=== PATIENT | male | born 1995 | race American Indian/Alaskan Native ===

== ENCOUNTER 2016-12-26 05:04 | Emergency (ER) | payer BC, OTHER ==
[2016-12-26 05:14] VITALS: BP 149/130
[2016-12-26] MEDS ORDERED: Ondansetron 4 MG/2 ML SDV IV ONE (05:15)
[2016-12-26] MEDS ORDERED: Famotidine 20 MG/2 ML SDV IVPUSH ONE (05:16)
[2016-12-26] MEDS ORDERED: HYDROmorphone 1 MG/ML Syringe IVPUSH ONE (05:30)
--- NOTE | 2016-12-26 05:31 | EDM.PDOC ---
ED HPI GENERAL MEDICAL PROBLEM - General Chief Complaint: Gastrointestinal Problem Stated Complaint: SHARP PAINS IN BACK, ABD PAIN Time Seen by Provider: 12/26/16 05:15 Source of Information: Reports: Patient History Limitations: Reports: No Limitations - History of Present Illness INITIAL COMMENTS - FREE TEXT/NARRATIVE: c/o mid epigastric pain which radiates to back that woke him from sleep, vomited x 5. Ate pizza hamburger and fries for supper. Similar episodes in past after eating greasy food. Has not tried anything for pain. Epigastric Pain Score (Numeric/FACES): 9 - Related Data Allergies Allergy/AdvReac Type Severity Reaction Status Date / Time No Known Allergies Allergy Verified 02/27/14 23:47 Home Meds: Home Meds . [No Known Home Meds] 02/27/14 [History] Past Medical History - Past Health History Medical/Surgical History: Denies Medical/Surgical History Social & Family History - Tobacco Use Smoking Status *Q: Current Every Day Smoker Years of Tobacco use: 6 Packs/Tins Daily: 0.2 Used Tobacco, but Quit: No Second Hand Smoke Exposure: Yes - Caffeine Use Caffeine Use: Reports: Energy Drinks, Soda - Alcohol Use Days Per Week of Alcohol Use: 1 Number of Drinks Per Day: 4 Total Drinks Per Week: 4 - Recreational Drug Use Recreational Drug Use: No ED ROS GENERAL - Review of Systems Review Of Systems: ROS reveals no pertinent complaints other than HPI. ED EXAM, GI/ABD - Physical Exam Exam: See Below Exam Limited By: No Limitations General Appearance: Alert, Mild Distress Ears: Normal External Exam Nose: Normal Inspection Throat/Mouth: Normal Inspection, Normal Lips Head: Atraumatic, Normocephalic Neck: Normal Inspection Respiratory/Chest: No Respiratory Distress, Lungs Clear Cardiovascular: Normal Peripheral Pulses, Regular Rate, Rhythm GI/Abdominal Exam: Normal Bowel Sounds, Soft, Tender (epigastric , RUQ) Extremities: Normal Inspection, Normal Range of Motion Neurological: Alert, Oriented, Normal Cognition Psychiatric: Normal Affect, Anxious Skin Exam: Warm, Dry, Intact, Normal Color Course - Vital Signs Last Recorded V/S: Last Vital Signs Temp 97.0 F 12/26/16 05:12 Pulse 64 12/26/16 05:12 Resp 23 H 12/26/16 05:12 BP 149/130 H 12/26/16 05:12 Pulse Ox 100 12/26/16 05:12 - Orders/Labs/Meds Orders: Active Orders 24 hr Category Date Time Status Abdomen Pelvis w Cont [CT] Urgent Exams 12/26/16 06:22 Taken Labs: Laboratory Tests 12/26/16 12/26/16 Range/Units 05:15 05:15 WBC 10.5 H (5.0-10.0) 10^3/uL RBC 5.40 (4.6-6.2) 10^6/uL Hgb 16.3 (14.0-18.0) g/dL Hct 47.4 (40.0-54.0) % MCV 87.8 (80-100) fL MCH 30.2 (27.0-34.0) pg MCHC 34.4 (33.0-35.0) g/dL Plt Count 342 (150-450) 10^3/uL Neut % (Auto) 71.1 (42.2-75.2) % Lymph % (Auto) 20.2 L (20.5-50.1) % [place] % (Auto) 7.5 (2-8) % Eos % (Auto) 1.0 (1.0-3.0) % Baso % (Auto) 0.2 (0.0-1.0) % Sodium 140 (135-145) mmol/L Potassium 3.7 (3.6-5.0) mmol/L Chloride 105 (101-111) mmol/L Carbon Dioxide 24.0 (21.0-31.0) mmol/L Anion Gap 14.7 BUN 12 (7-18) mg/dL Creatinine 1.0 (0.6-1.3) mg/dL Est Cr Clr Drug Dosing 115.87 mL/min Estimated GFR (MDRD) > 60 BUN/Creatinine Ratio 12.00 Glucose 147 H (74-105) mg/dL Calcium 9.4 (8.4-10.2) mg/dl Total Bilirubin 0.6 (0.2-1.0) mg/dL AST 167 H (10-42) IU/L ALT 272 H (10-60) IU/L Alkaline Phosphatase 83 (42-121) IU/L Total Protein 8.0 (6.7-8.2) g/dl Albumin 4.2 (3.2-5.5) g/dl Globulin 3.8 Albumin/Globulin Ratio 1.11 Amylase 64 (28-100) U/L Lipase 29 (22-51) U/L Meds: Medications Discontinued Medications Generic Name Dose Route Start Last Admin Trade Name Fabricio PRN Reason Stop Dose Admin Famotidine 20 mg 12/26/16 05:16 12/26/16 05:23 Pepcid IVPUSH 12/26/16 05:17 20 mg ONETIME ONE Administration Hydromorphone HCl 1 mg 12/26/16 05:30 12/26/16 05:34 Dilaudid IVPUSH 12/26/16 05:31 1 mg ONETIME ONE Administration Iopamidol 100 ml 12/26/16 06:14 Isovue-300 (61%) IVPUSH 12/26/16 06:15 ONETIME ONE Ondansetron HCl 4 mg 12/26/16 05:15 12/26/16 05:22 Zofran IV 12/26/16 05:16 4 mg ONETIME ONE Administration - Radiology Interpretation Free Text/Narrative:: mildly dilated gall bladder no gall stones Departure - Departure Time of Disposition: 06:59 Disposition: Home, Self-Care 01 Condition: Good Clinical Impression: Abdominal pain Qualifiers: Abdominal location: right upper quadrant Qualified Code(s): R10.11 - Right upper quadrant pain - Discharge Information Instructions: Nausea and Vomiting, Adult, [id number] Forms: ED Department Discharge Additional Instructions: light low fat diet follow up in clinic. Gall Bladder ultrasound recommende tylenol or ibuprofen for discomfortZofran 4mg ODT one every 6 hours as needed #4 - My Orders Last 24 Hours: My Active Orders 12/26/16 06:22 Abdomen Pelvis w Cont [CT] Urgent - Assessment/Plan Last 24 Hours: My Active Orders 12/26/16 06:22 Abdomen Pelvis w Cont [CT] Urgent
[2016-12-26 05:42] LABS: CHLORIDE,CL 105 mmol/L (101-111); SODIUM,NA 140 mmol/L (135-145)
[2016-12-26] MEDS ORDERED: Iopamidol 612 MG/ML 100 ML Bottle IVPUSH ONE (06:14)
== END 2016-12-26 07:09 | disposition home or self-care (01) ==
LOC: DL.ED 05:04
DX: R10.11 Right upper quadrant pain (principal); F17.210 Nicotine dependence, cigarettes, uncomplicated
CPT/HCPCS: 36415; 74177; 80053; 82150; 83690; 85025; 96374; 96375; 99284; J1170; J2405; Q9967; S0028

== ENCOUNTER 2017-08-23 18:17 | Emergency (ER) | payer BC, OTHER ==
[2017-08-23 18:29] VITALS: BP 154/86
[2017-08-23 19:06] LABS: CHLORIDE,CL 105 mmol/L (101-111); SODIUM,NA 141 mmol/L (135-145)
--- NOTE | 2017-08-23 19:11 | EDM.PDOC ---
ED HPI GENERAL MEDICAL PROBLEM - General Chief Complaint: Abdominal Pain Stated Complaint: [id number] GALBLADDER Time Seen by Provider: 08/23/17 19:04 Source of Information: Reports: Patient History Limitations: Reports: No Limitations - History of Present Illness INITIAL COMMENTS - FREE TEXT/NARRATIVE: recurrent abd' pain @ 2pm ate Missy earlier gives h/o GB but missed appt in March and never called back. been ok till today. states has been scheduled for surgery here when surgeon arrives. Abdomen Pain Score (Numeric/FACES): 7 - Related Data Allergies Allergy/AdvReac Type Severity Reaction Status Date / Time No Known Allergies Allergy Verified 08/23/17 18:29 Home Meds: Home Meds . [No Known Home Meds] 02/27/14 [History] Past Medical History - Past Health History Medical/Surgical History: Denies Medical/Surgical History HEENT History: Reports: Impaired Vision Other HEENT History: wears glasses Cardiovascular History: Reports: None Respiratory History: Reports: None Gastrointestinal History: Reports: Cholelithiasis Genitourinary History: Reports: None Musculoskeletal History: Reports: None Neurological History: Reports: None Psychiatric History: Reports: None Endocrine/Metabolic History: Reports: None Hematologic History: Reports: None Immunologic History: Reports: None Oncologic (Cancer) History: Reports: None Dermatologic History: Reports: None - Infectious Disease History Infectious Disease History: Reports: None - Past Surgical History Head Surgeries/Procedures: Reports: None Social & Family History - Tobacco Use Smoking Status *Q: Current Every Day Smoker Years of Tobacco use: 3 Packs/Tins Daily: 0.5 Second Hand Smoke Exposure: No - Caffeine Use Caffeine Use: Reports: None - Recreational Drug Use Recreational Drug Use: No ED ROS GENERAL - Review of Systems Review Of Systems: ROS reveals no pertinent complaints other than HPI. ED EXAM, GI/ABD - Physical Exam Exam: See Below Exam Limited By: No Limitations General Appearance: Alert, WD/WN, Mild Distress, Other (pain) Ears: Hearing Grossly Normal Throat/Mouth: Normal Voice, No Airway Compromise Head: Atraumatic Neck: Non-Tender, Full Range of Motion Respiratory/Chest: No Respiratory Distress Cardiovascular: Regular Rate, Rhythm GI/Abdominal Exam: Tender, Other (epiG). No: Distended, Guarding, Rigid, Rebound Neurological: Alert, Oriented, Normal Cognition, Normal Gait, No Motor/Sensory Deficits Psychiatric: Tearful Skin Exam: Warm, Dry, Normal Color Lymphatic: No Adenopathy Course - Vital Signs Last Recorded V/S: Last Vital Signs Temp 36.4 C 08/23/17 18:22 Pulse 101 H 08/23/17 18:22 Resp 16 08/23/17 18:22 BP 154/86 H 08/23/17 18:22 Pulse Ox 100 08/23/17 18:22 - Orders/Labs/Meds Orders: Active Orders 24 hr Category Date Time Status DRUG SCREEN URINE BIORAD [URCHEM] Stat Lab 08/23/17 18:35 Ordered UA W/MICROSCOPIC [URIN] Stat Lab 08/23/17 18:35 Ordered Labs: Laboratory Tests 08/23/17 08/23/17 Range/Units 18:40 18:40 WBC 8.9 (5.0-10.0) 10^3/uL RBC 5.43 (4.6-6.2) 10^6/uL Hgb 16.7 (14.0-18.0) g/dL Hct 49.2 (40.0-54.0) % MCV 90.6 (80-100) fL MCH 30.8 (27.0-34.0) pg MCHC 33.9 (33.0-35.0) g/dL Plt Count 355 (150-450) 10^3/uL Neut % (Auto) 63.5 (42.2-75.2) % Lymph % (Auto) 24.6 (20.5-50.1) % [place] % (Auto) 10.4 H (2-8) % Eos % (Auto) 1.3 (1.0-3.0) % Baso % (Auto) 0.2 (0.0-1.0) % Sodium 141 (135-145) mmol/L Potassium 4.4 (3.6-5.0) mmol/L Chloride 105 (101-111) mmol/L Carbon Dioxide 29.0 (21.0-31.0) mmol/L Anion Gap 11.4 BUN 8 (7-18) mg/dL Creatinine 1.1 (0.6-1.3) mg/dL Est Cr Clr Drug Dosing 107.84 mL/min Estimated GFR (MDRD) > 60 BUN/Creatinine Ratio 7.27 Glucose 105 (74-105) mg/dL Calcium 9.6 (8.4-10.2) mg/dl Total Bilirubin 0.8 (0.2-1.0) mg/dL AST 113 H (10-42) IU/L ALT 201 H (10-60) IU/L Alkaline Phosphatase 86 (42-121) IU/L Total Protein 7.8 (6.7-8.2) g/dl Albumin 4.0 (3.2-5.5) g/dl Globulin 3.8 Albumin/Globulin Ratio 1.05 Amylase 52 (28-100) U/L Lipase 36 (22-51) U/L Ethyl Alcohol < 5 mg/dL Meds: Medications Discontinued Medications Generic Name Dose Route Start Last Admin Trade Name Freq PRN Reason Stop Dose Admin Ketorolac Tromethamine 30 mg 08/23/17 19:03 Toradol IM 08/23/17 19:04 ONETIME ONE Ondansetron HCl 4 mg 08/23/17 19:03 Zofran Odt PO 08/23/17 19:04 ONETIME ONE - Re-Assessments/Exams Free Text/Narrative Re-Assessment/Exam: 08/23/17 19:19 results discussed with pt. Departure - Departure Time of Disposition: 19:20 Disposition: Home, Self-Care 01 Condition: Good Clinical Impression: Abdominal pain Qualifiers: Abdominal location: epigastric Qualified Code(s): R10.13 - Epigastric pain Cholelithiases Qualifiers: Cholelithiasis location: gallbladder Cholecystitis presence: without cholecystitis Biliary obstruction: without biliary obstruction Qualified Code(s) : K80.20 - Calculus of gallbladder without cholecystitis without obstruction - Discharge Information Instructions: Gallbladder Eating Plan Referrals: PCP,None [Primary Care Provider] - Forms: ED Department Discharge Additional Instructions: 1) avoid fatty fried oily spicy foods next 2 week 2) follow up at clinic 3) recheck as needed rx given; bentyl 10mg bid prn x 12
[2017-08-23] MEDS: Ondansetron 4 MG Tab.DIS PO ONE (19:20)
[2017-08-23] MEDS: Ketorolac 30 MG/ML SDV IM ONE (19:21)
== END 2017-08-23 19:27 | disposition home or self-care (01) ==
LOC: DL.ED 18:17
DX: K80.20 Calculus of gallbladder without cholecystitis without obstruction (principal); F17.210 Nicotine dependence, cigarettes, uncomplicated
CPT/HCPCS: 36415; 80053; 82150; 83690; 85025; 96372; 99284; A9270; G0480; J1885

== ENCOUNTER 2020-01-08 11:37 | Emergency (ER) | payer SELFPAY ==
--- NOTE | 2020-01-08 11:35 | EDM.PDOC ---
ED HPI GENERAL MEDICAL PROBLEM - General Chief Complaint: Abdominal Pain Stated Complaint: unknown Time Seen by Provider: 01/08/20 12:37 Source of Information: Reports: Patient, EMS, EMS Notes Reviewed, Old Records, RN, RN Notes Reviewed History Limitations: Reports: No Limitations - History of Present Illness INITIAL COMMENTS - FREE TEXT/NARRATIVE: Patient presents to the ED via EMS from [facility] with complaints of LUQ pain. Per the patient this pain began about 4-5 days ago and radiates across his upper abdomen, into his back. He does attest to a history of chol elithiasis with recommended surgical intervention in 2018, which he never received. He states he has been nauseas for the past 4-5 days, as well; he states he has vomited 6 times. He denies diarrhea, shaking chills, dysuria, hematuria, or constipation. He states his last BM was this morning 01/08/20. He does attest to drinking a six-pack of beer every other day. He denies recreational drug use. Left Upper Abdomen Pain Score (Numeric/FACES): 7 - Related Data Allergies Allergy/AdvReac Type Severity Reaction Status Date / Time No Known Allergies Allergy Verified 08/23/17 18:29 Home Meds: Home Meds . [No Known Home Meds] 02/27/14 [History] Past Medical History - Past Health History Medical/Surgical History: Denies Medical/Surgical History HEENT History: Reports: Impaired Vision Other HEENT History: wears glasses Cardiovascular History: Reports: None Respiratory History: Reports: None Gastrointestinal History: Reports: Cholelithiasis Genitourinary History: Reports: None Musculoskeletal History: Reports: None Neurological History: Reports: None Psychiatric History: Reports: None Endocrine/Metabolic History: Reports: None Hematologic History: Reports: None Immunologic History: Reports: None Oncologic (Cancer) History: Reports: None Dermatologic History: Reports: None - Infectious Disease History Infectious Disease History: Reports: None - Past Surgical History Head Surgeries/Procedures: Reports: None Social & Family History - Caffeine Use Caffeine Use: Reports: None ED ROS GENERAL - Review of Systems Review Of Systems: Comprehensive ROS is negative, except as noted in HPI. ED EXAM, GI/ABD - Physical Exam Exam: See Below Exam Limited By: No Limitations General Appearance: Alert, WD/WN, No Apparent Distress Eyes: Bilateral: Normal Appearance (Scleral jaundice), EOMI Throat/Mouth: Normal Voice, No Airway Compromise Respiratory/Chest: No Respiratory Distress, Lungs Clear, Normal Breath Sounds, No Accessory Muscle Use, Chest Non-Tender Cardiovascular: Normal Peripheral Pulses, Regular Rate, Rhythm, No Edema, No Gallop, No Murmur, No Rub GI/Abdominal Exam: Soft, No Distention, No Mass, Tender (Diffuse upper abdominal pain), Abnormal Bowel Sounds (Hypoactive), Hepatomegaly. No: Guarding, Rigid (Male) Exam: Deferred Rectal (Males) Exam: Deferred Back Exam: Normal Inspection, Full Range of Motion. No: CVA Tenderness (L), CVA Tenderness (R), Muscle Spasm, Paraspinal Tenderness, Vertebral Tenderness Extremities: Normal Inspection, Normal Range of Motion, Non-Tender, No Pedal Edema, Normal Capillary Refill. No: Pallor Neurological: Alert, Oriented, CN II-XII Intact Skin Exam: Warm, Dry, Jaundice Course - Vital Signs Last Recorded V/S: Last Vital Signs Temp 100 F 01/08/20 11:55 Pulse 119 H 01/08/20 11:55 Resp 14 01/08/20 11:55 BP 122/75 01/08/20 11:55 Pulse Ox 97 01/08/20 11:55 - Orders/Labs/Meds Orders: Active Orders 24 hr Category Date Time Status Peripheral IV Care [RC] . DIRECTED Care 01/08/20 11:26 Active CULTURE BLOOD [BC] Stat Lab 01/08/20 11:40 Received CULTURE BLOOD [BC] Stat Lab 01/08/20 11:45 Received Sodium Chloride 0.9% [Saline Flush] Med 01/08/20 11:26 Active 10 ml FLUSH ASDIRECTED PRN Blood Culture x2 Reflex Set [OM.PC] Stat Oth 01/08/20 11:26 Ordered Peripheral IV Insertion Adult [OM.PC] Stat Oth 01/08/20 11:26 Ordered Medication Orders Sodium Chloride (Saline Flush) 10 ml FLUSH ASDIRECTED PRN PRN Reason: Keep Vein Open Last Admin: 01/08/20 11:54 Dose: 10 ml Documented by: YUAN Labs: Laboratory Tests 01/08/20 01/08/20 01/08/20 Range/Units 11:33 11:45 11:45 WBC 25.0 H (5.0-10.0) 10^3/uL RBC 3.64 L (4.6-6.2) 10^6/uL Hgb 11.4 L D (14.0-18.0) g/dL Hct 33.5 L (40.0-54.0) % MCV 92.0 (80-100) fL MCH 31.3 (27.0-34.0) pg MCHC 34.0 (33.0-35.0) g/dL Plt Count 353 (150-450) 10^3/uL Neut % (Auto) 85.8 H (42.2-75.2) % Lymph % (Auto) 7.2 L (20.5-50.1) % [place] % (Auto) 6.8 (2-8) % Eos % (Auto) 0.1 L (1.0-3.0) % Baso % (Auto) 0.1 (0.0-1.0) % Add Manual Diff Yes Neutrophils % (Manual) 83 H (42-75) % Band Neutrophils % 8 % Lymphocytes % (Manual) 5 L (20-50) % Monocytes % (Manual) 4 (2-8) % Sodium 132 L (136-145) mmol/L Potassium 3.2 L (3.5-5.1) mmol/L Chloride 98 (98-107) mmol/L Carbon Dioxide 23 (21-32) mmol/L Anion Gap 14.2 H (7-13) mEq/L BUN 16 (7-18) mg/dL Creatinine 1.24 (0.70-1.30) mg/dL Est Cr Clr Drug Dosing TNP Estimated GFR (MDRD) > 60 BUN/Creatinine Ratio 12.9 (No establ ref range) Glucose 156 H (74-99) mg/dL Lactic Acid (0.4-2.0) mmol/L Calcium 7.8 L (8.5-10.1) mg/dL Total Bilirubin 6.1 H (0.2-1.0) mg/dL AST 222 H (15-37) U/L ALT 61 (16-63) U/L Alkaline Phosphatase 346 H (46-116) U/L Total Protein 7.9 (6.4-8.2) g/dL Albumin 1.5 L (3.4-5.0) g/dL Globulin 6.4 Albumin/Globulin Ratio 0.23 Amylase (25-115) U/L Lipase (73-393) U/L Urine Color (YELLOW) Urine Appearance (CLEAR) Urine pH (5.0-9.0) Ur Specific [place] (1.005-1.030) Urine Protein (NEGATIVE) Urine Glucose (UA) (NEGATIVE) Urine Ketones (NEGATIVE) Urine Occult Blood (NEGATIVE) Urine Nitrite (NEGATIVE) Urine Bilirubin (NEGATIVE) Urine Urobilinogen (0.2-1.0) mg/dL Ur Leukocyte Esterase (NEGATIVE) Urine RBC /HPF Urine WBC (0-5/HPF) /HPF Ur Epithelial Cells (NOT SEEN) /HPF Urine Bacteria (0-FEW/HPF) /HPF Urine Mucus (NOT SEEN) /LPF Urine Opiates Screen (NEGATIVE) Ur Oxycodone Screen (NEGATIVE) Urine Methadone Screen (NEGATIVE) Ur Barbiturates Screen (NEGATIVE) U Tricyclic Antidepress (NEGATIVE) Ur Phencyclidine Scrn (NEGATIVE) Ur Amphetamine Screen (NEGATIVE) U Methamphetamines Scrn (NEGATIVE) Urine MDMA Screen (NEGATIVE) U Benzodiazepines Scrn (NEGATIVE) Urine Cocaine Screen (NEGATIVE) U Marijuana (THC) Screen (NEGATIVE) SARS CoV-2 RNA Rapid EDDA Negative (NEGATIVE) 01/08/20 01/08/20 01/08/20 Range/Units 11:45 11:45 14:00 WBC (5.0-10.0) 10^3/uL RBC (4.6-6.2) 10^6/uL Hgb (14.0-18.0) g/dL Hct (40.0-54.0) % MCV (80-100) fL MCH (27.0-34.0) pg MCHC (33.0-35.0) g/dL Plt Count (150-450) 10^3/uL Neut % (Auto) (42.2-75.2) % Lymph % (Auto) (20.5-50.1) % [place] % (Auto) (2-8) % Eos % (Auto) (1.0-3.0) % Baso % (Auto) (0.0-1.0) % Add Manual Diff Neutrophils % (Manual) (42-75) % Band Neutrophils % % Lymphocytes % (Manual) (20-50) % Monocytes % (Manual) (2-8) % Sodium (136-145) mmol/L Potassium (3.5-5.1) mmol/L Chloride (98-107) mmol/L Carbon Dioxide (21-32) mmol/L Anion Gap (7-13) mEq/L BUN (7-18) mg/dL Creatinine (0.70-1.30) mg/dL Est Cr Clr Drug Dosing Estimated GFR (MDRD) BUN/Creatinine Ratio (No establ ref range) Glucose (74-99) mg/dL Lactic Acid 2.5 H* (0.4-2.0) mmol/L Calcium (8.5-10.1) mg/dL Total Bilirubin (0.2-1.0) mg/dL AST (15-37) U/L ALT (16-63) U/L Alkaline Phosphatase (46-116) U/L Total Protein (6.4-8.2) g/dL Albumin (3.4-5.0) g/dL Globulin Albumin/Globulin Ratio Amylase 35 (25-115) U/L Lipase 150 (73-393) U/L Urine Color Nupur (YELLOW) Urine Appearance Slightly cloudy (CLEAR) Urine pH 5.5 (5.0-9.0) Ur Specific [place] 1.020 (1.005-1.030) Urine Protein 30 H (NEGATIVE) Urine Glucose (UA) Negative (NEGATIVE) Urine Ketones Negative (NEGATIVE) Urine Occult Blood Negative (NEGATIVE) Urine Nitrite Negative (NEGATIVE) Urine Bilirubin Large H (NEGATIVE) Urine Urobilinogen 4.0 H (0.2-1.0) mg/dL Ur Leukocyte Esterase Negative (NEGATIVE) Urine RBC 0-5 /HPF Urine WBC 0-5 (0-5/HPF) /HPF Ur Epithelial Cells Rare (NOT SEEN) /HPF Urine Bacteria Rare (0-FEW/HPF) /HPF Urine Mucus Rare (NOT SEEN) /LPF Urine Opiates Screen (NEGATIVE) Ur Oxycodone Screen (NEGATIVE) Urine Methadone Screen (NEGATIVE) Ur Barbiturates Screen (NEGATIVE) U Tricyclic Antidepress (NEGATIVE) Ur Phencyclidine Scrn (NEGATIVE) Ur Amphetamine Screen (NEGATIVE) U Methamphetamines Scrn (NEGATIVE) Urine MDMA Screen (NEGATIVE) U Benzodiazepines Scrn (NEGATIVE) Urine Cocaine Screen (NEGATIVE) U Marijuana (THC) Screen (NEGATIVE) SARS CoV-2 RNA Rapid EDDA (NEGATIVE) 10/15/20 Range/Units 14:00 WBC (5.0-10.0) 10^3/uL RBC (4.6-6.2) 10^6/uL Hgb (14.0-18.0) g/dL Hct (40.0-54.0) % MCV (80-100) fL MCH (27.0-34.0) pg MCHC (33.0-35.0) g/dL Plt Count (150-450) 10^3/uL Neut % (Auto) (42.2-75.2) % Lymph % (Auto) (20.5-50.1) % [place] % (Auto) (2-8) % Eos % (Auto) (1.0-3.0) % Baso % (Auto) (0.0-1.0) % Add Manual Diff Neutrophils % (Manual) (42-75) % Band Neutrophils % % Lymphocytes % (Manual) (20-50) % Monocytes % (Manual) (2-8) % Sodium (136-145) mmol/L Potassium (3.5-5.1) mmol/L Chloride (98-107) mmol/L Carbon Dioxide (21-32) mmol/L Anion Gap (7-13) mEq/L BUN (7-18) mg/dL Creatinine (0.70-1.30) mg/dL Est Cr Clr Drug Dosing Estimated GFR (MDRD) BUN/Creatinine Ratio (No establ ref range) Glucose (74-99) mg/dL Lactic Acid (0.4-2.0) mmol/L Calcium (8.5-10.1) mg/dL Total Bilirubin (0.2-1.0) mg/dL AST (15-37) U/L ALT (16-63) U/L Alkaline Phosphatase (46-116) U/L Total Protein (6.4-8.2) g/dL Albumin (3.4-5.0) g/dL Globulin Albumin/Globulin Ratio Amylase (25-115) U/L Lipase (73-393) U/L Urine Color (YELLOW) Urine Appearance (CLEAR) Urine pH (5.0-9.0) Ur Specific [place] (1.005-1.030) Urine Protein (NEGATIVE) Urine Glucose (UA) (NEGATIVE) Urine Ketones (NEGATIVE) Urine Occult Blood (NEGATIVE) Urine Nitrite (NEGATIVE) Urine Bilirubin (NEGATIVE) Urine Urobilinogen (0.2-1.0) mg/dL Ur Leukocyte Esterase (NEGATIVE) Urine RBC /HPF Urine WBC (0-5/HPF) /HPF Ur Epithelial Cells (NOT SEEN) /HPF Urine Bacteria (0-FEW/HPF) /HPF Urine Mucus (NOT SEEN) /LPF Urine Opiates Screen Negative (NEGATIVE) Ur Oxycodone Screen Negative (NEGATIVE) Urine Methadone Screen Negative (NEGATIVE) Ur Barbiturates Screen Negative (NEGATIVE) U Tricyclic Antidepress Negative (NEGATIVE) Ur Phencyclidine Scrn Negative (NEGATIVE) Ur Amphetamine Screen Negative (NEGATIVE) U Methamphetamines Scrn Negative (NEGATIVE) Urine MDMA Screen Negative (NEGATIVE) U Benzodiazepines Scrn Negative (NEGATIVE) Urine Cocaine Screen Negative (NEGATIVE) U Marijuana (THC) Screen Negative (NEGATIVE) SARS CoV-2 RNA Rapid EDDA (NEGATIVE) Meds: Medications Generic Name Dose Route Start Last Admin Trade Name Freq PRN Reason Stop Dose Admin Sodium Chloride 10 ml 01/08/20 11:26 01/08/20 11:54 Saline Flush FLUSH 10 ml ASDIRECTED PRN Administration Keep Vein Open Discontinued Medications Generic Name Dose Route Start Last Admin Trade Name Freq PRN Reason Stop Dose Admin Hydromorphone HCl 1 mg 01/08/20 12:43 01/08/20 12:50 Dilaudid IVPUSH 01/08/20 12:44 1 mg ONETIME ONE Administration Sodium Chloride 1,000 mls @ 999 mls/hr 01/08/20 12:25 01/08/20 12:38 Normal Saline IV 01/08/20 13:25 999 mls/hr .BOLUS ONE Administration Piperacillin Sod/Tazobactam 100 mls @ 200 mls/hr 01/08/20 14:36 01/08/20 15:05 Sod 3.375 gm/ Sodium Chloride IV 01/08/20 15:05 200 mls/hr ONETIME ONE Administration Vancomycin HCl 2 gm/ Sodium 500 mls @ 250 mls/hr 01/08/20 14:37 01/08/20 15:50 Chloride IV 01/08/20 16:36 250 mls/hr ONETIME ONE Administration Iopamidol 100 ml 01/08/20 12:24 01/08/20 13:03 Isovue-300 (61%) IVPUSH 01/08/20 12:25 100 ml ONETIME ONE Administration Lorazepam 1 mg 01/08/20 11:36 01/08/20 11:55 Ativan IVPUSH 01/08/20 11:37 1 mg ONETIME ONE Administration Ondansetron HCl 4 mg 01/08/20 11:35 01/08/20 11:55 Zofran IVPUSH 01/08/20 11:36 4 mg ONETIME ONE Administration - Re-Assessments/Exams Free Text/Narrative Re-Assessment/Exam: 01/08/20 12:45 CBC, CMP, Lactic, UA, Tox, Amylase/Lipase 01/08/20 13:00 NS 1L bolus x1; Zofran 4mg; Dilaudid 2mg 01/08/20 13:[address] abd/pelvis 01/08/20 13:44 Dr. Dorsey to come evaluate patient for surgery. 01/08/20 14:18 Patient to transfer to [facility] under Dr. Barrios for cholelithiasis and sepsis. [facility] and [place] not accepting transfers at this time. Will start Vanco and Zosyn while awaiting ground transport. 01/08/20 16:30 Continued waiting for ALS transport to [place]. Departure - Departure Time of Disposition: 17:21 Disposition: DC/Tfer to Acute Hospital 02 Condition: Good Clinical Impression: Cholelithiasis and acute cholecystitis without obstruction Sepsis Qualifiers: Sepsis type: sepsis due to unspecified organism Sepsis acute organ dysfunction status: unspecified Qualified Code(s): A41.9 - Sepsis, unspecified organism - Discharge Information *PRESCRIPTION DRUG MONITORING PROGRAM REVIEWED*: Not Applicable *COPY OF PRESCRIPTION DRUG MONITORING REPORT IN PATIENT MASHA: Not Applicable Forms: ED Department Discharge, Interfacility Transfer [facility] Sepsis Event Note (ED) - Focused Exam Vital Signs: Vital Signs Temp Pulse Resp BP Pulse Ox 01/08/20 11:55 100 F 119 H 14 122/75 97 - My Orders Last 24 Hours: My Active Orders 01/08/20 11:26 Peripheral IV Care [RC] . DIRECTED Sodium Chloride 0.9% [Saline Flush] 10 ml FLUSH ASDIRECTED PRN Blood Culture x2 Reflex Set [OM.PC] Stat Peripheral IV Insertion Adult [OM.PC] Stat 01/08/20 11:40 CULTURE BLOOD [BC] Stat 01/08/20 11:45 CULTURE BLOOD [BC] Stat - Assessment/Plan Last 24 Hours: My Active Orders 01/08/20 11:26 Peripheral IV Care [RC] . DIRECTED Sodium Chloride 0.9% [Saline Flush] 10 ml FLUSH ASDIRECTED PRN Blood Culture x2 Reflex Set [OM.PC] Stat Peripheral IV Insertion Adult [OM.PC] Stat 01/08/20 11:40 CULTURE BLOOD [BC] Stat 01/08/20 11:45 CULTURE BLOOD [BC] Stat
[~2020-01-08 11:37] MED LIST: LORazepam 2 MG/ML SDV IVPUSH ONE; Ondansetron 4 MG/2 ML SDV IVPUSH ONE; Sodium Chloride 0.9% 10 ML Syringe FLUSH PRN
[2020-01-08 11:56] VITALS: BP 122/75; PULSE 119
[2020-01-08 12:18] LABS: ANION GAP 14.2 mEq/L (7-13); CHLORIDE,CL 98 mmol/L (98-107); SODIUM,NA 132 mmol/L (136-145)
[2020-01-08] MEDS ORDERED: Iopamidol 612 MG/ML 100 ML Bottle IVPUSH ONE (12:24)
[2020-01-08] MEDS ORDERED: Sodium Chloride 0.9% 1,000 ML IV ONE (12:25)
[2020-01-08] MEDS ORDERED: HYDROmorphone 1 MG/ML Syringe IVPUSH ONE (12:43)
--- NOTE | 2020-01-08 13:31 | CT ---
EXAMINATION: Abdomen Pelvis w Cont SEX: Male AGE: 24 years CLINICAL HISTORY: 24-year-old 280 pound jaundiced male, with history "cholelithiasis". Now LUQ PAIN with abnormal elevated WBC 25,000. Scan technique: Abdomen and pelvis obtained without oral contrast but during the intravenous ministration 100 cc nonionic Isovue contrast at 3 cc/s via injector while patient was lying supine on the Siemens multislice scanner [place], [place]. All data archived in the PACS system for storage, reformatting axial/sagittal/coronal planes and study. Interpretation: 1. Enlarged liver extending across midline into the LUQ. Mild fatty involvement liver which is homogeneously dense liver. Mild splenomegaly. No sign of intrahepatic mass or infarct. No ascites. 2. Cholelithiasis. No pericystic fluid or abnormal dilatation of the intra/extrahepatic biliary ducts. 3., Adrenal glands and kidneys. No sign of renal cortical mass lesion, nephrolithiasis or obstructive uropathy. Unenhanced urinary bladder unremarkable. Normal retrocecal appendix. 4. No abdominal or pelvic mass lesion, inflammatory "dirty" peritoneal fat, signs of mechanical bowel obstruction, ascites or free intraperitoneal air. Scattered diverticula descending left colon (diverticulosis). 5. Normal caliber aortoiliac vessels. Lumbar spine unremarkable. No ventral wall hernias. 6. Lung bases clear. No pericardial or pleural effusions. CONCLUSION: Hepatosplenomegaly. Diseased gallbladder. Diverticulosis colon.
[2020-01-08] MEDS ORDERED: Piperacillin/Tazobactam 3.375 GM in Sodium Chloride 0.9% 100 ML IV ONE (14:36)
[2020-01-08] MEDS ORDERED: Vancomycin 2 GM in Sodium Chloride 0.9% 500 ML IV ONE (14:37)
== END 2020-01-08 17:22 ==
LOC: DL.ED 11:37
DX: A41.9 Sepsis, unspecified organism (principal); K80.00 Calculus of gallbladder with acute cholecystitis without obstruction; Z20.828 Contact with and (suspected) exposure to other viral communicable diseases
CPT/HCPCS: 36415; 74177; 80053; 80305; 81001; 82150; 83605; 83690; 85025; 87040; 87635; 96365; 96367; 96375; 99285; J1170; J2060; J2405; J2543; J3370; J7030; J7040; J7050; Q9967; U0002

== ENCOUNTER 2020-01-21 14:21 | Emergency (ER) | payer SELFPAY ==
[2020-01-21 14:32] VITALS: BP 124/73; PULSE 121
[2020-01-21 15:21] LABS: ANION GAP 15.7 mEq/L (7-13); CHLORIDE,CL 100 mmol/L (98-107); SODIUM,NA 135 mmol/L (136-145)
[2020-01-21] MEDS ORDERED: Sodium Chloride 0.9% 1,000 ML IV ONE (15:53)
[2020-01-21] MEDS ORDERED: Piperacillin/Tazobactam 3.375 GM in Sodium Chloride 0.9% 100 ML IV ONE (15:54)
--- NOTE | 2020-01-21 17:04 | EDM.PDOC ---
ED HPI GENERAL MEDICAL PROBLEM - General Chief Complaint: Abdominal Pain Time Seen by Provider: 01/21/20 14:30 Source of Information: Reports: Patient, EMS, EMS Notes Reviewed, RN, RN Notes Reviewed History Limitations: Reports: No Limitations - History of Present Illness INITIAL COMMENTS - FREE TEXT/NARRATIVE: Patient to ER per [facility] with complaint of abdominal pain across the upper quadrants, rates pain 8/10. Patient was seen in the [facility] today for complaint of extreme left upper quadrant pain. On January 07 patient was sent to the ER from [facility] and was then transferred to [facility] for cholecystitis, alcoholic hepatitis, gastritis. Patient is a known drinker, states he drinks 10-12 beers about every other day. Last week patient had labs but was not seen by provider, at that time white blood count was 17.9, hemoglobin 10.3. Today white blood count is 24, hemoglobin 9.4 at [facility]. Patient is retaining fluid, discharge weight was 315 pounds, today he is 298. Provider states this is still up 20 pounds from January 07. Provider reports jaundice, fatigue, shortness of breath, denies any nausea or vomiting, and bowel movements are okay. Patient denies any alcohol intake since prior to the surgery, 17 to 18 days. When patient arrives to the ER he continues to rate the pain an 8/10. States the pain is progressively been getting worse. Onset: Gradual Abdomen Pain Score (Numeric/FACES): 7 - Related Data Allergies Allergy/AdvReac Type Severity Reaction Status Date / Time No Known Allergies Allergy Verified 01/21/20 14:39 Home Meds: Home Meds Calcium Carbonate [Tums] 500 mg PO DAILY 01/21/20 [History] Furosemide [Lasix] 40 mg PO DAILY 01/21/20 [History] Spironolactone [Aldactone] 100 mg PO DAILY 01/21/20 [History] Past Medical History - Past Health History Medical/Surgical History: Denies Medical/Surgical History HEENT History: Reports: Impaired Vision Other HEENT History: wears glasses Cardiovascular History: Reports: None Respiratory History: Reports: None Gastrointestinal History: Reports: Cholelithiasis Genitourinary History: Reports: None Musculoskeletal History: Reports: None Neurological History: Reports: None Psychiatric History: Reports: None Endocrine/Metabolic History: Reports: None Hematologic History: Reports: None Immunologic History: Reports: None Oncologic (Cancer) History: Reports: None Dermatologic History: Reports: None - Infectious Disease History Infectious Disease History: Reports: None - Past Surgical History Head Surgeries/Procedures: Reports: None GI Surgical History: Reports: Cholecystectomy Social & Family History - Tobacco Use Tobacco Use Status *Q: Current Every Day Tobacco User Years of Tobacco use: 5 Packs/Tins Daily: 0.3 - Caffeine Use Caffeine Use: Reports: Coffee, Soda, Tea - Recreational Drug Use Recreational Drug Use: No ED ROS GENERAL - Review of Systems Review Of Systems: Comprehensive ROS is negative, except as noted in HPI. ED EXAM, SEPSIS - Physical Exam Exam: See Below Exam Limited By: No Limitations General Appearance: Alert Eye Exam: Bilateral Eye: EOMI, Other (scleral icterus) Ears: Normal External Exam, Hearing Grossly Normal Nose: Normal Inspection Throat/Mouth: Normal Inspection, Normal Voice, No Airway Compromise Head: Atraumatic, Normocephalic Neck: Normal Inspection, Supple, Non-Tender, Full Range of Motion Respiratory/Chest: No Respiratory Distress, Lungs Clear, Normal Breath Sounds, No Accessory Muscle Use, Chest Non-Tender Cardiovascular: Normal Peripheral Pulses, Regular Rate, Rhythm, No Edema, No Gallop, No JVD, No Murmur, No Rub Peripheral Pulses: 2+: Radial (L), Radial (R) GI/Abdominal Exam: Normal Bowel Sounds, Distended, Guarding, Rigid, Tender (Male) Exam: Deferred Rectal (Males) Exam: Deferred Back: Normal Inspection, Decreased Range of Motion Extremities: Normal Inspection, Normal Range of Motion, Non-Tender, Normal Capillary Refill, Pedal Edema (+1 pitting) Neurological: Alert, Oriented, CN II-XII Intact, Normal Cognition, No Motor/Sensory Deficits Psychiatric: Normal Affect, Normal Mood Skin: Warm, Dry, Intact, Normal Color, No Rash Lymphatic: Bilateral: No Adenopathy Course - Vital Signs Last Recorded V/S: Last Vital Signs Temp 99.2 F 01/21/20 14:31 Pulse 121 H 01/21/20 14:31 Resp 20 01/21/20 14:31 BP 124/73 01/21/20 14:31 Pulse Ox 100 01/21/20 14:31 - Orders/Labs/Meds Orders: Active Orders 24 hr Category Date Time Status CULTURE BLOOD [BC] Stat Lab 01/21/20 14:48 Received CULTURE BLOOD [BC] Stat Lab 01/21/20 14:53 Received Blood Culture x2 Reflex Set [OM.PC] Stat Oth 01/21/20 14:43 Ordered Labs: Laboratory Tests 01/21/20 01/21/20 01/21/20 Range/Units 14:53 14:53 14:53 WBC 24.7 H (5.0-10.0) 10^3/uL RBC 2.80 L (4.6-6.2) 10^6/uL Hgb 8.9 L D (14.0-18.0) g/dL Hct 27.3 L (40.0-54.0) % MCV 97.5 D (80-100) fL MCH 31.8 (27.0-34.0) pg MCHC 32.6 L (33.0-35.0) g/dL Plt Count 368 (150-450) 10^3/uL Neut % (Auto) 87.2 H (42.2-75.2) % Lymph % (Auto) 7.4 L (20.5-50.1) % Bennett % (Auto) 4.6 (2-8) % Eos % (Auto) 0.7 L (1.0-3.0) % Baso % (Auto) 0.1 (0.0-1.0) % Add Manual Diff Yes Neutrophils % (Manual) 69 (42-75) % Band Neutrophils % 22 % Lymphocytes % (Manual) 8 L (20-50) % Monocytes % (Manual) 1 L (2-8) % Toxic Granulation 1+ slight Dohle Bodies 1+ slight Target Cells 2+ moderate Tear Drop Cells 1+ slight PT 13.6 H (9.0-12.0) SEC INR 1.4 H (0.9-1.2) Sodium 135 L (136-145) mmol/L Potassium 3.7 (3.5-5.1) mmol/L Chloride 100 (98-107) mmol/L Carbon Dioxide 23 (21-32) mmol/L Anion Gap 15.7 H (7-13) mEq/L BUN 11 (7-18) mg/dL Creatinine 1.31 H (0.70-1.30) mg/dL Est Cr Clr Drug Dosing 86.20 mL/min Estimated GFR (MDRD) > 60 BUN/Creatinine Ratio 8.4 (No establ ref range) Glucose 151 H (74-99) mg/dL Lactic Acid (0.4-2.0) mmol/L Calcium 8.1 L (8.5-10.1) mg/dL Total Bilirubin 4.4 H (0.2-1.0) mg/dL AST 151 H (15-37) U/L ALT 49 (16-63) U/L Alkaline Phosphatase 406 H (46-116) U/L B-Natriuretic Peptide 365 H (0-100) pg/ml Total Protein 7.2 (6.4-8.2) g/dL Albumin 1.4 L (3.4-5.0) g/dL Globulin 5.8 Albumin/Globulin Ratio 0.24 Urine Color (YELLOW) Urine Appearance (CLEAR) Urine pH (5.0-9.0) Ur Specific Warren (1.005-1.030) Urine Protein (NEGATIVE) Urine Glucose (UA) (NEGATIVE) Urine Ketones (NEGATIVE) Urine Occult Blood (NEGATIVE) Urine Nitrite (NEGATIVE) Urine Bilirubin (NEGATIVE) Urine Urobilinogen (0.2-1.0) mg/dL Ur Leukocyte Esterase (NEGATIVE) Ethyl Alcohol < 3 (0) mg/dL 01/21/20 01/21/20 Range/Units 14:53 17:17 WBC (5.0-10.0) 10^3/uL RBC (4.6-6.2) 10^6/uL Hgb (14.0-18.0) g/dL Hct (40.0-54.0) % MCV (80-100) fL MCH (27.0-34.0) pg MCHC (33.0-35.0) g/dL Plt Count (150-450) 10^3/uL Neut % (Auto) (42.2-75.2) % Lymph % (Auto) (20.5-50.1) % Bennett % (Auto) (2-8) % Eos % (Auto) (1.0-3.0) % Baso % (Auto) (0.0-1.0) % Add Manual Diff Neutrophils % (Manual) (42-75) % Band Neutrophils % % Lymphocytes % (Manual) (20-50) % Monocytes % (Manual) (2-8) % Toxic Granulation Dohle Bodies Target Cells Tear Drop Cells PT (9.0-12.0) SEC INR (0.9-1.2) Sodium (136-145) mmol/L Potassium (3.5-5.1) mmol/L Chloride (98-107) mmol/L Carbon Dioxide (21-32) mmol/L Anion Gap (7-13) mEq/L BUN (7-18) mg/dL Creatinine (0.70-1.30) mg/dL Est Cr Clr Drug Dosing mL/min Estimated GFR (MDRD) BUN/Creatinine Ratio (No establ ref range) Glucose (74-99) mg/dL Lactic Acid 2.9 H* (0.4-2.0) mmol/L Calcium (8.5-10.1) mg/dL Total Bilirubin (0.2-1.0) mg/dL AST (15-37) U/L ALT (16-63) U/L Alkaline Phosphatase (46-116) U/L B-Natriuretic Peptide (0-100) pg/ml Total Protein (6.4-8.2) g/dL Albumin (3.4-5.0) g/dL Globulin Albumin/Globulin Ratio Urine Color Yellow (YELLOW) Urine Appearance Clear (CLEAR) Urine pH 6.5 (5.0-9.0) Ur Specific Warren 1.020 (1.005-1.030) Urine Protein Negative (NEGATIVE) Urine Glucose (UA) Negative (NEGATIVE) Urine Ketones Negative (NEGATIVE) Urine Occult Blood Negative (NEGATIVE) Urine Nitrite Negative (NEGATIVE) Urine Bilirubin Small H (NEGATIVE) Urine Urobilinogen 0.2 (0.2-1.0) mg/dL Ur Leukocyte Esterase Negative (NEGATIVE) Ethyl Alcohol (0) mg/dL Meds: Medications Discontinued Medications Generic Name Dose Route Start Last Admin Trade Name Freq PRN Reason Stop Dose Admin Sodium Chloride 1,000 mls @ 200 mls/hr 01/21/20 15:53 01/21/20 17:41 Normal Saline IV 01/21/20 20:52 200 mls/hr .BOLUS ONE Administration Piperacillin Sod/Tazobactam 100 mls @ 200 mls/hr 01/21/20 15:54 01/21/20 17:41 Sod 3.375 gm/ Sodium Chloride IV 01/21/20 16:23 200 mls/hr ONETIME ONE Administration Iopamidol 100 ml 01/21/20 17:07 01/21/20 17:20 Isovue-300 (61%) IVPUSH 01/21/20 17:08 100 ml ONETIME ONE Administration - Radiology Interpretation Free Text/Narrative:: CT Abdomen/Pelvis with contrast: PROCEDURE INFORMATION: Exam: CT Abdomen And Pelvis With Contrast Exam date and time: 01/21/2020 5:16 PM Age: 24 years old Clinical indication: Other: Sepsis, recent cholecystectomy; Prior surgery; Surge ry date: 3-7 days post-operative; Surgery type: Cholecystectomy on 01/15/2020 or 01/16/2020; Patient HX: Wbc: 24.7, rbc: 2.8 TECHNIQUE: Imaging protocol: Computed tomography of the abdomen and pelvis with intravenous contrast. Radiation optimization: All CT scans at this facility use at least one of these dose optimization techniques: automated exposure control; mA and/or kV adjustment per patient size (includes targeted exams where dose is matched to clinical indication); or iterative reconstruction. Contrast material: ISOVUE 300; Contrast volume: 100 ml; Contrast route: INTRAVENOUS (IV); COMPARISON: CT Abdomen Pelvis w Cont 01/08/2020 12:58 PM FINDINGS: Lungs: There is mild nonspecific patchy linear density at left lung base which could be atelectatic, or inflammatory. Liver: There is a diffuse decrease in hepatic parenchymal density, consistent with severe hepatic steatosis. Gallbladder and bile ducts: There is an ovoid fluid collection in the gallbladder fossa measuring 6.4 x 3.6 x 6.0 cm. There is no evidence of biliary ductal dilation. Pancreas: The pancreas is normal. Spleen: The spleen is enlarged measuring 16.2 cm. No focal splenic lesion seen. Adrenal glands: The adrenal glands are normal. Kidneys and ureters: The kidneys are normal. No hydronephrosis. No visible calculi. Stomach and bowel: Non-specific/nonobstructive intestinal gas pattern. Appendix: A normal appendix is identified. Intraperitoneal space: There is a moderate amount of free intraperitoneal fluid present. There is no free intraperitoneal air. Vasculature: There is no abdominal aortic aneurysm. Lymph nodes: Prominent but not pathologic retroperitoneal lymph nodes are seen. No pelvic adenopathy. Urinary bladder: The bladder is normal. Reproductive: Prostate is unremarkable. Seminal vesicles are unremarkable. Bones/joints: No acute bony findings are identified. Soft tissues: Postoperative change anterior abdominal wall. IMPRESSION: 1. There is an ovoid fluid collection in the gallbladder fossa measuring 6.4 x 3.6 x 6.0 cm. Question biloma, hematoma, seroma. Timing related to surgery would be rather early for abscess, abscess is not entirely ruled out. 2. There is moderate ascites in the abdomen, etiology indeterminate. 3. Hepatic steatosis. Hepatosplenomegaly. 4. Other findings as described Thank you for allowing us to participate in the care of your patient. Dictated and Authenticated by: Randolph Soares MD 01/21/2020 5:46 PM Central Time ([place] & [place]) See rad report - Re-Assessments/Exams Free Text/Narrative Re-Assessment/Exam: 01/22/20 10:07 Patient case discussed with Dr. Barrios, hospitalist at [facility] who states she would like a CT with contrast done of the abdomen and pelvis. Dr. Barrios is aware of the Creatinine and called to discuss this with her radiologist. Called [facility] back with results of the CT. Discussed with Dr. Bruno who agreed to accept the patient for transfer to [facility]. José and Dr. Bruno did discuss this with Dr. Koch, the surgeon who performed the cholecystectomy 2 weeks ago. Departure - Departure Time of Disposition: 19:11 Disposition: DC/Tfer to Acute Hospital 02 Condition: Fair Clinical Impression: Abdominal pain Qualifiers: Abdominal location: epigastric Qualified Code(s): R10.13 - Epigastric pain Sepsis Qualifiers: Sepsis type: sepsis due to unspecified organism Sepsis acute organ dysfunction status: unspecified Qualified Code(s): A41.9 - Sepsis, unspecified organism - Discharge Information *PRESCRIPTION DRUG MONITORING PROGRAM REVIEWED*: No *COPY OF PRESCRIPTION DRUG MONITORING REPORT IN PATIENT MASHA: No Referrals: PCP,None [Primary Care Provider] - Forms: ED Department Discharge Sepsis Event Note (ED) - Evaluation Sepsis Screening Result: No Definite Risk - My Orders Last 24 Hours: My Active Orders 01/21/20 14:43 Blood Culture x2 Reflex Set [OM.PC] Stat 01/21/20 14:48 CULTURE BLOOD [BC] Stat 01/21/20 14:53 CULTURE BLOOD [BC] Stat - Assessment/Plan Last 24 Hours: My Active Orders 01/21/20 14:43 Blood Culture x2 Reflex Set [OM.PC] Stat 01/21/20 14:48 CULTURE BLOOD [BC] Stat 01/21/20 14:53 CULTURE BLOOD [BC] Stat
[2020-01-21] MEDS ORDERED: Iopamidol 612 MG/ML 100 ML Bottle IVPUSH ONE (17:07)
--- NOTE | 2020-01-21 17:46 | CT ---
PROCEDURE INFORMATION: Exam: CT Abdomen And Pelvis With Contrast Exam date and time: 01/21/2020 5:16 PM Age: 24 years old Clinical indication: Other: Sepsis, recent cholecystectomy; Prior surgery; Surgery date: 3-7 days post-operative; Surgery type: Cholecystectomy on 01/15/2020 or 01/16/2020; Patient HX: Wbc: 24.7, rbc: 2.8 TECHNIQUE: Imaging protocol: Computed tomography of the abdomen and pelvis with intravenous contrast. Radiation optimization: All CT scans at this facility use at least one of these dose optimization techniques: automated exposure control; mA and/or kV adjustment per patient size (includes targeted exams where dose is matched to clinical indication); or iterative reconstruction. Contrast material: ISOVUE 300; Contrast volume: 100 ml; Contrast route: INTRAVENOUS (IV); COMPARISON: CT Abdomen Pelvis w Cont 01/08/2020 12:58 PM FINDINGS: Lungs: There is mild nonspecific patchy linear density at left lung base which could be atelectatic, or inflammatory. Liver: There is a diffuse decrease in hepatic parenchymal density, consistent with severe hepatic steatosis. Gallbladder and bile ducts: There is an ovoid fluid collection in the gallbladder fossa measuring 6.4 x 3.6 x 6.0 cm. There is no evidence of biliary ductal dilation. Pancreas: The pancreas is normal. Spleen: The spleen is enlarged measuring 16.2 cm. No focal splenic lesion seen. Adrenal glands: The adrenal glands are normal. Kidneys and ureters: The kidneys are normal. No hydronephrosis. No visible calculi. Stomach and bowel: Non-specific/nonobstructive intestinal gas pattern. Appendix: A normal appendix is identified. Intraperitoneal space: There is a moderate amount of free intraperitoneal fluid present. There is no free intraperitoneal air. Vasculature: There is no abdominal aortic aneurysm. Lymph nodes: Prominent but not pathologic retroperitoneal lymph nodes are seen. No pelvic adenopathy. Urinary bladder: The bladder is normal. Reproductive: Prostate is unremarkable. Seminal vesicles are unremarkable. Bones/joints: No acute bony findings are identified. Soft tissues: Postoperative change anterior abdominal wall. IMPRESSION: 1. There is an ovoid fluid collection in the gallbladder fossa measuring 6.4 x 3.6 x 6.0 cm. Question biloma, hematoma, seroma. Timing related to surgery would be rather early for abscess, abscess is not entirely ruled out. 2. There is moderate ascites in the abdomen, etiology indeterminate. 3. Hepatic steatosis. Hepatosplenomegaly. 4. Other findings as described
== END 2020-01-21 19:11 ==
LOC: DL.ED 14:21
DX: A41.9 Sepsis, unspecified organism (principal); R10.13 Epigastric pain; F17.210 Nicotine dependence, cigarettes, uncomplicated; Z90.49 Acquired absence of other specified parts of digestive tract; Z79.899 Other long term (current) drug therapy
CPT/HCPCS: 36415; 74177; 80053; 80307; 81003; 83605; 83880; 85025; 85610; 87040; 93005; 96365; 99285; J2543; J7030; J7050; Q9967

== ENCOUNTER 2020-05-13 23:22 | Emergency (ER) | payer MEDICAID, OTHER ==
[2020-05-13] MEDS ORDERED: Lidocaine 1% 30 ML SDV INJECT ONE (23:31)
[2020-05-13] MEDS ORDERED: Bacitracin Oint 1 GM U/D Packet TOP ONE (23:31)
[2020-05-13 23:32] VITALS: BP 113/68; PULSE 125
--- NOTE | 2020-05-13 23:36 | EDM.PDOC ---
ED HPI GENERAL MEDICAL PROBLEM - General Chief Complaint: Laceration Stated Complaint: FINGER/LEFT EYE LACERATION INTOXICATION Time Seen by Provider: 05/13/20 23:30 Source of Information: Reports: Patient, Family History Limitations: Reports: Altered Mental Status - History of Present Illness INITIAL COMMENTS - FREE TEXT/NARRATIVE: ED with faily, SO states attempting to open something and cut thumb on right, Laceration to left outer eyebrow, SO does not know how occurred. Patient denied drugs or alcohol. SZ stated he was with firends tonight but only had maybe a couple beers. Used to be heavy drinker but hasn't drank much in past couple of months. Unsure of last tetnus. - Related Data Allergies Allergy/AdvReac Type Severity Reaction Status Date / Time No Known Allergies Allergy Verified 05/13/20 23:28 Home Meds: Home Meds Calcium Carbonate [Tums] 500 mg PO DAILY 01/21/20 [History] Furosemide [Lasix] 40 mg PO DAILY 01/21/20 [History] Spironolactone [Aldactone] 100 mg PO DAILY 01/21/20 [History] Past Medical History - Past Health History Medical/Surgical History: Denies Medical/Surgical History HEENT History: Reports: Impaired Vision Other HEENT History: wears glasses Cardiovascular History: Reports: None Respiratory History: Reports: None Gastrointestinal History: Reports: Cholelithiasis Genitourinary History: Reports: None Musculoskeletal History: Reports: None Neurological History: Reports: None Psychiatric History: Reports: None Endocrine/Metabolic History: Reports: None Hematologic History: Reports: None Immunologic History: Reports: None Oncologic (Cancer) History: Reports: None Dermatologic History: Reports: None - Infectious Disease History Infectious Disease History: Reports: None - Past Surgical History Head Surgeries/Procedures: Reports: None GI Surgical History: Reports: Cholecystectomy Social & Family History - Caffeine Use Caffeine Use: Reports: Coffee, Soda, Tea ED ROS GENERAL - Review of Systems Review Of Systems: Comprehensive ROS is negative, except as noted in HPI. ED EXAM, SKIN/RASH Exam: See Below Exam Limited By: Intoxication Eye Exam: Bilateral Eye: EOMI Ears: Normal External Exam, Hearing Grossly Normal Nose: Normal Inspection Throat/Mouth: Normal Inspection Head: Other (laceration left later eybrow). No: Facial Swelling Neck: Normal Inspection Respiratory/Chest: No Respiratory Distress, Lungs Clear Cardiovascular: Normal Peripheral Pulses, Regular Rate, Rhythm GI/Abdominal: Soft Neurological: Alert, Memory Loss Recent Events. No: Normal Cognition Psychiatric: Other (belligerant ,calms and redirectable with significant other. ). No: Normal Mood Skin: Warm, Normal Color, Wound/Incision (puncture wound right thumb, laceration left eyebrow) Location, Skin: Face, Upper Extremity, Right Associated features: No: Swelling ED SKIN PROCEDURES - Laceration/Wound Repair Left Lateral Brow Appearance: Superficial Distal NVT: Neuro & Vascular Intact Anesthetic Type: Local Local Anesthesia - Lidocaine (Xylocaine): 1% Plain Local Anesthetic Volume: 1cc Skin Prep: Chlorhexidine (Hibiciens) Closed with: Sutures Lac/Wound length In cm: 1.5 Suture Size: 4-0 # of Sutures: 3 Suture Type: Nylon, Interrupted Tetanus Status Addressed: Yes Complications: No Course - Vital Signs Last Recorded V/S: Last Vital Signs Temp 97.8 F 05/13/20 23:28 Pulse 125 H 05/13/20 23:28 Resp 16 05/13/20 23:28 BP 113/68 05/13/20 23:28 Pulse Ox 96 05/13/20 23:28 - Orders/Labs/Meds Orders: Active Orders 24 hr Category Date Time Status AMMONIA VENOUS [CHEM] Stat Lab 05/13/20 23:40 Received DRUG SCREEN URINE BIORAD [URCHEM] Stat Lab 05/13/20 23:31 Ordered Labs: Laboratory Tests 05/13/20 Range/Units 23:40 WBC 10.6 H (5.0-10.0) 10^3/uL RBC 4.62 (4.6-6.2) 10^6/uL Hgb 13.5 L D (14.0-18.0) g/dL Hct 40.0 (40.0-54.0) % MCV 86.6 D (80-100) fL MCH 29.2 (27.0-34.0) pg MCHC 33.8 (33.0-35.0) g/dL Plt Count 242 D (150-450) 10^3/uL Neut % (Auto) 62.2 (42.2-75.2) % Lymph % (Auto) 30.8 (20.5-50.1) % [place] % (Auto) 5.1 (2-8) % Eos % (Auto) 1.6 (1.0-3.0) % Baso % (Auto) 0.3 (0.0-1.0) % Meds: Medications Discontinued Medications Generic Name Dose Route Start Last Admin Trade Name Fabricio PRN Reason Stop Dose Admin Bacitracin 1 dose 05/13/20 23:31 Bacitracin Oint 1 Gm TOP 05/13/20 23:32 ONETIME ONE Lidocaine HCl 30 ml 05/13/20 23:31 05/14/20 00:00 Xylocaine-Mpf 1% INJECT 05/13/20 23:32 3 ml ONETIME ONE Administration - Re-Assessments/Exams Free Text/Narrative Re-Assessment/Exam: 05/14/20 00:13 Left with significant other prior to results of labs. Frequent moving during attempt to repair laceration . Argumentative. Verbal instructions to significant other during suturing on care and to have removed in clinic 10-14 days. . 05/14/20 00:16 Departure - Departure Time of Disposition: 00:12 Disposition: Left Without Being Seen 07 Condition: Undetermined Clinical Impression: Puncture wound - injury, Laceration of eyebrow, Intoxication - Discharge Information *PRESCRIPTION DRUG MONITORING PROGRAM REVIEWED*: No *COPY OF PRESCRIPTION DRUG MONITORING REPORT IN PATIENT MASHA: No Forms: ED Department Discharge Sepsis Event Note (ED) - Evaluation Sepsis Screening Result: No Definite Risk - Focused Exam Vital Signs: Vital Signs Temp Pulse Resp BP Pulse Ox 05/13/20 23:28 97.8 F 125 H 16 113/68 96 - My Orders Last 24 Hours: My Active Orders 05/13/20 23:31 DRUG SCREEN URINE BIORAD [URCHEM] Stat 05/13/20 23:40 AMMONIA VENOUS [CHEM] Stat - Assessment/Plan Last 24 Hours: My Active Orders 05/13/20 23:31 DRUG SCREEN URINE BIORAD [URCHEM] Stat 05/13/20 23:40 AMMONIA VENOUS [CHEM] Stat
--- NOTE | 2020-05-14 | CT ---
PROCEDURE INFORMATION: Exam: CT Head Without Contrast Exam date and time: 05/13/2020 11:47 PM Age: 24 years old Clinical indication: Other: ETOH; Additional info: Altered mental TECHNIQUE: Imaging protocol: Computed tomography of the head without contrast. Radiation optimization: All CT scans at this facility use at least one of these dose optimization techniques: automated exposure control; mA and/or kV adjustment per patient size (includes targeted exams where dose is matched to clinical indication); or iterative reconstruction. COMPARISON: No relevant prior studies available. FINDINGS: There is no evidence for intracranial hemorrhage, space occupying lesions or mass effect. The ventricles are normal in size and contour. Dubois-white differentiation is preserved. IMPRESSION: Negative head CT
[2020-05-14 00:08] LABS: ANION GAP 16.8 mEq/L (7-13); CHLORIDE,CL 94 mmol/L (98-107); SODIUM,NA 132 mmol/L (136-145)
== END 2020-05-14 00:09 | disposition left against medical advice (07) ==
LOC: DL.ED 23:22
DX: S01.112A Laceration without foreign body of left eyelid and periocular area, initial encounter (principal); S61.031A Puncture wound without foreign body of right thumb without damage to nail, initial encounter; F10.129 Alcohol abuse with intoxication, unspecified; Z79.899 Other long term (current) drug therapy; Y90.8 Blood alcohol level of 240 mg/100 ml or more; W26.8XXA Contact with other sharp object(s), not elsewhere classified, initial encounter
CPT/HCPCS: 12001; 12011; 36415; 70450; 80053; 80307; 82140; 85025; 99282; 99284-25

== ENCOUNTER 2020-05-30 14:36 | Emergency (ER) | payer MEDICAID, OTHER ==
[2020-05-30 15:16] VITALS: BP 133/97; PULSE 110
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
== END 2020-05-30 16:10 | disposition home or self-care (01) ==
LOC: DL.ED 14:36
DX: S62.360A Nondisplaced fracture of neck of second metacarpal bone, right hand, initial encounter for closed fracture (principal); Z72.0 Tobacco use; Z79.899 Other long term (current) drug therapy; Y04.0XXA Assault by unarmed brawl or fight, initial encounter
CPT/HCPCS: 29125; 73130-RT; 99282; 99284-25

== ENCOUNTER 2020-07-04 12:47 | Emergency (ER) | payer MEDICAID, OTHER ==
[2020-07-04 12:57] VITALS: BP 143/95; PULSE 108
[2020-07-04] MEDS ORDERED: cefTRIAXone 1 GM, Lidocaine 1% 2.1 ML IM ONE ×2 (13:26)
[2020-07-04] MEDS ORDERED: Clindamycin HCl 150 MG Cap PO ONE (13:27)
[2020-07-04] MEDS ORDERED: Lidocaine 2% Viscous Solution 15 ML Cup MUCMEM ONE (13:28)
[2020-07-04] MEDS ORDERED: Promethazine 25 MG Tab PO ONE (13:28)
[2020-07-04] MEDS ORDERED: traMADol 50 MG Tab PO ONE (13:29)
--- NOTE | 2020-07-04 13:41 | EDM.PDOC ---
Scribed by Zhanna Gauthier 07/04/20 1340 for Gordy Wiggins MD ED HPI GENERAL MEDICAL PROBLEM - General Chief Complaint: ENT Problem Stated Complaint: TOOTHACHE Time Seen by Provider: 07/04/20 13:08 Source of Information: Reports: Patient, RN, RN Notes Reviewed History Limitations: Reports: No Limitations - History of Present Illness INITIAL COMMENTS - FREE TEXT/NARRATIVE: Patient presents to ED by POV with toothache to the upper right for the past 4 days. He is going to the clinic tomorrow, wondering if has infection. He rates the pain 10/02. He took Advil 800 mg at 1200HRS. Onset: Gradual Duration: Constant Location: Reports: Other (tooth) Quality: Reports: Ache Severity: Moderate Improves with: Reports: None Worsens with: Reports: None Associated Symptoms: Reports: No Other Symptoms Right Oral/Mouth Pain Score (Numeric/FACES): 7 - Related Data Allergies Allergy/AdvReac Type Severity Reaction Status Date / Time No Known Allergies Allergy Verified 07/04/20 12:57 Home Meds: Home Meds Calcium Carbonate [Tums] 500 mg PO DAILY 01/21/20 [History] Furosemide [Lasix] 40 mg PO DAILY 01/21/20 [History] Spironolactone [Aldactone] 100 mg PO DAILY 01/21/20 [History] Past Medical History - Past Health History Medical/Surgical History: Denies Medical/Surgical History HEENT History: Reports: Impaired Vision Other HEENT History: wears glasses Cardiovascular History: Reports: None Respiratory History: Reports: None Gastrointestinal History: Reports: Cholelithiasis Genitourinary History: Reports: None, Other (See Below) Other Genitourinary History: "kidney issues" Musculoskeletal History: Reports: None Neurological History: Reports: None Psychiatric History: Reports: None Endocrine/Metabolic History: Reports: Diabetes, Type II Hematologic History: Reports: None Immunologic History: Reports: None Oncologic (Cancer) History: Reports: None Dermatologic History: Reports: None - Infectious Disease History Infectious Disease History: Reports: Chicken Pox - Past Surgical History Head Surgeries/Procedures: Reports: None GI Surgical History: Reports: Cholecystectomy Social & Family History - Tobacco Use Tobacco Use Status *Q: Current Every Day Tobacco User Years of Tobacco use: 7 Packs/Tins Daily: 0.5 Second Hand Smoke Exposure: No - Caffeine Use Caffeine Use: Reports: Coffee, Energy Drinks, Soda - Recreational Drug Use Recreational Drug Type: Reports: Marijuana/Hashish Other Recreational Drug Type: smoked yesterday ED ROS ENT - Review of Systems Review Of Systems: Comprehensive ROS is negative, except as noted in HPI. ED EXAM, ENT - Physical Exam Exam: See Below Exam Limited By: No Limitations General Appearance: Alert, WD/WN, No Apparent Distress Eye Exam: Bilateral Eye: Normal Inspection Ears: Normal External Exam, Normal Canal, Hearing Grossly Normal, Normal TMs Nose: Normal Inspection, Normal Mucousa, No Blood Mouth/Throat: Normal Lips, Normal Oropharynx, Dental Abcess (Right maxillary molars), Dental Pain, Dental Tenderness. No: Dental Trauma Head: Atraumatic, Normocephalic, Facial Swelling (Right maxillary face, without increased warmth or erythema), Facial Tenderness Neck: Normal Inspection Respiratory/Chest: No Respiratory Distress Cardiovascular: Regular Rate, Rhythm Neurological: Alert, Oriented, No Motor/Sensory Deficits Psychiatric: Normal Mood Skin: Warm, Dry, Intact, Normal Color, No Rash Course - Vital Signs Last Recorded V/S: Last Vital Signs Temp 97.2 F 07/04/20 12:53 Pulse 108 H 07/04/20 12:53 Resp 16 07/04/20 12:53 BP 143/95 H 07/04/20 12:53 Pulse Ox 98 07/04/20 12:53 - Orders/Labs/Meds Meds: Medications Discontinued Medications Generic Name Dose Route Start Last Admin Trade Name Freq PRN Reason Stop Dose Admin Clindamycin HCl 300 mg 07/04/20 13:27 Clindamycin Hcl 150 Mg Cap PO 07/04/20 13:28 ONETIME ONE Ceftriaxone Sodium 1 gm/ 0 gm 07/04/20 13:26 Lidocaine HCl 2.1 ml IM 07/04/20 13:27 ONETIME ONE Lidocaine HCl 15 ml 07/04/20 13:28 Lidocaine 2% Viscous Solution 15 Ml Cup MUCMEM 07/04/20 13:29 ONETIME ONE Promethazine HCl 25 mg 07/04/20 13:28 Promethazine 25 Mg Tab PO 07/04/20 13:29 ONETIME ONE Tramadol HCl 50 mg 07/04/20 13:29 Tramadol 50 Mg Tab PO 07/04/20 13:30 ONETIME ONE Departure - Departure Time of Disposition: 13:39 Disposition: Home, Self-Care 01 Condition: Good Clinical Impression: Dental abscess - Discharge Information *PRESCRIPTION DRUG MONITORING PROGRAM REVIEWED*: Not Applicable *COPY OF PRESCRIPTION DRUG MONITORING REPORT IN PATIENT MASHA: Not Applicable Instructions: Dental Abscess Forms: ED Department Discharge Additional Instructions: Rx: Clindamycin 300mg Rx: Viscous Lidocaine 2% Rx: Naprosyn 500mg Follow up with dentist tomorrow for recheck. Sepsis Event Note (ED) - Evaluation Sepsis Screening Result: No Definite Risk - Focused Exam Vital Signs: Vital Signs Temp Pulse Resp BP Pulse Ox 07/04/20 12:53 97.2 F 108 H 16 143/95 H 98 I have read and agree with the documentation that has been completed regarding this visit. By signing this record, I attest that the documentation was completed in my physical presence and is an accurate record of the encounter.
== END 2020-07-04 13:59 | disposition home or self-care (01) ==
LOC: DL.ED 12:47
DX: K04.7 Periapical abscess without sinus (principal); E11.9 Type 2 diabetes mellitus without complications; Z72.0 Tobacco use; Z79.899 Other long term (current) drug therapy
CPT/HCPCS: 96372; 99282; 99283; A9270; J0696

== ENCOUNTER 2020-08-24 05:11 | Emergency (ER) | payer MEDICAID, OTHER ==
[2020-08-24 05:27] VITALS: BP 135/106; PULSE 97
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
[2020-08-24] MEDS ORDERED: Ibuprofen 600 MG Tab PO ONE (05:44)
== END 2020-08-24 06:00 | disposition home or self-care (01) ==
LOC: DL.ED 05:11
DX: H60.502 Unspecified acute noninfective otitis externa, left ear (principal); E11.9 Type 2 diabetes mellitus without complications; Z79.899 Other long term (current) drug therapy; Z72.0 Tobacco use
CPT/HCPCS: 99282; 99283; A9270-GY

== ENCOUNTER 2021-04-04 13:48 | Emergency (ER) | payer OTHER, MEDICAID ==
[2021-04-04 14:15] VITALS: BP 137/99; PULSE 89
[2021-04-04] MEDS ORDERED: Ketorolac 30 MG/ML SDV IVPUSH ONE (16:05)
[2021-04-04] MEDS ORDERED: Sodium Chloride 0.9% 10 ML Syringe FLUSH PRN (16:05)
[2021-04-04 17:11] LABS: ANION GAP 18.1 mEq/L (7-13); CHLORIDE,CL 101 mmol/L (98-107); SODIUM,NA 138 mmol/L (136-145)
--- NOTE | 2021-04-04 17:43 | CT ---
PROCEDURE INFORMATION: Exam: CT Abdomen And Pelvis Without Contrast Exam date and time: 04/04/2021 5:21 PM Age: 25 years old Clinical indication: Abdominal pain; Localized; Right lower quadrant (rlq); Additional info: Rlq abdominal pain TECHNIQUE: Imaging protocol: Computed tomography of the abdomen and pelvis without contrast. Radiation optimization: All CT scans at this facility use at least one of these dose optimization techniques: automated exposure control; mA and/or kV adjustment per patient size (includes targeted exams where dose is matched to clinical indication); or iterative reconstruction. COMPARISON: CT Abdomen Pelvis w Cont 01/21/2020 5:16 PM FINDINGS: Lungs: The visualized lung bases are clear. Liver: There is mild enlargement of the liver. No focal liver lesion is seen. Gallbladder and bile ducts: Status post cholecystectomy. There is no evidence of biliary ductal dilation. Pancreas: The pancreas is normal. Spleen: The spleen is normal. Adrenal glands: The adrenal glands are normal. Kidneys and ureters: The kidneys are normal. No hydronephrosis. No visible calculi. Stomach and bowel: Non-specific/nonobstructive intestinal gas pattern. No specific small bowel or colonic abnormality is identified. The upper GI tract is normal. Appendix: A normal appendix is identified. Intraperitoneal space: No subhepatic fluid collection is seen. There is no evidence of free intraperitoneal fluid. No free intraperitoneal air. Vasculature: The vasculature is normal. Lymph nodes: Prominent but not pathologic mediastinal lymph nodes remain stable. No pelvic adenopathy. Urinary bladder: The bladder is normal. Reproductive: Prostate and seminal vesicles are unremarkable. Bones/joints: No acute bony findings are identified. Soft tissues: There is no soft tissue abnormality seen. IMPRESSION: 1. No hydronephrosis. No urolithiasis. 2. Normal appendix. 3. No acute findings. 4. Stable prominent retroperitoneal lymph nodes show no progression or regression. 5. The liver remains mildly enlarged, no focal liver lesion seen.
--- NOTE | 2021-04-04 18:09 | EDM.PDOC ---
Scribed by Zhanna Gauthier 04/04/21 2308 for Gordy Wiggins MD ED HPI GENERAL MEDICAL PROBLEM - General Chief Complaint: Abdominal Pain Stated Complaint: GROIN PAIN Time Seen by Provider: 04/04/21 15:46 Source of Information: Reports: Patient, RN, RN Notes Reviewed History Limitations: Reports: No Limitations - History of Present Illness INITIAL COMMENTS - FREE TEXT/NARRATIVE: Patient presents to ED by POV stating that he started having right lower abdominal pain. He states also had some chest pain that comes and goes with this also. He now is not having the chest pain, thought he was dehydrated so stated slamming water last night. Denies nausea or vomiting. States this AM which was normal. He rates the pain 7/10, took nothing for the pain. Onset: Gradual Duration: Constant Location: Reports: Abdomen Quality: Reports: Ache Severity: Severe Improves with: Reports: None Worsens with: Reports: None Associated Symptoms: Reports: No Other Symptoms Right Lower Abdomen Pain Score (Numeric/FACES): 7 - Related Data Allergies Allergy/AdvReac Type Severity Reaction Status Date / Time hydrocodone Allergy Itching Verified 04/04/21 14:15 Past Medical History - Past Health History Medical/Surgical History: Denies Medical/Surgical History HEENT History: Reports: Impaired Vision Other HEENT History: wears glasses Cardiovascular History: Reports: None Respiratory History: Reports: None Gastrointestinal History: Reports: Cholelithiasis Genitourinary History: Reports: None, Other (See Below) Other Genitourinary History: "kidney issues" Musculoskeletal History: Reports: None Neurological History: Reports: None Psychiatric History: Reports: None Endocrine/Metabolic History: Reports: Diabetes, Type II, Obesity/BMI 30+ Hematologic History: Reports: None Immunologic History: Reports: None Oncologic (Cancer) History: Reports: None Dermatologic History: Reports: None - Infectious Disease History Infectious Disease History: Reports: Chicken Pox - Past Surgical History Head Surgeries/Procedures: Reports: None GI Surgical History: Reports: Cholecystectomy Social & Family History - Tobacco Use Tobacco Use Status *Q: Current Every Day Tobacco User Years of Tobacco use: 8 Packs/Tins Daily: 0.5 Second Hand Smoke Exposure: No - Caffeine Use Caffeine Use: Reports: Energy Drinks - Recreational Drug Use Recreational Drug Use: No ED ROS GENERAL - Review of Systems Review Of Systems: Comprehensive ROS is negative, except as noted in HPI. ED EXAM, GI/ABD - Physical Exam Exam: See Below Exam Limited By: No Limitations General Appearance: Alert, WD/WN, No Apparent Distress, Obese Nose: Normal Inspection Throat/Mouth: Normal Voice, No Airway Compromise Head: Atraumatic, Normocephalic Neck: Normal Inspection, Non-Tender, Full Range of Motion Respiratory/Chest: No Respiratory Distress, Lungs Clear, Normal Breath Sounds, No Accessory Muscle Use, Chest Non-Tender Cardiovascular: Regular Rate, Rhythm GI/Abdominal Exam: Normal Bowel Sounds, Soft, No Distention, Tender (RLQ and suprapubic region, mild. No peritoneal signs). No: Guarding, Rigid, Rebound Back Exam: Normal Inspection, Full Range of Motion. No: CVA Tenderness (L), CVA Tenderness (R) Extremities: Normal Inspection Neurological: Alert, Oriented, No Motor/Sensory Deficits Psychiatric: Normal Mood Skin Exam: Warm, Dry, Intact, Normal Color, No Rash Course - Vital Signs Last Recorded V/S: Last Vital Signs Temp 97.7 F 04/04/21 14:09 Pulse 89 04/04/21 14:09 Resp 16 04/04/21 14:09 BP 137/99 H 04/04/21 14:09 Pulse Ox 99 04/04/21 14:09 - Orders/Labs/Meds Orders: Active Orders 24 hr Category Date Time Status Peripheral IV Care [RC] . DIRECTED Care 04/04/21 16:11 Active UA W/MICROSCOPIC [URIN] Stat Lab 04/04/21 17:10 Results Sodium Chloride 0.9% [Saline Flush] Med 04/04/21 16:05 Active 10 ml FLUSH ASDIRECTED PRN Peripheral IV Insertion Adult [OM.PC] Stat Oth 04/04/21 16:05 Ordered Medication Orders Sodium Chloride (Sodium Chloride 0.9% 10 Ml Syringe) 10 ml FLUSH ASDIRECTED PRN PRN Reason: Keep Vein Open Last Admin: 04/04/21 16:42 Dose: 10 ml Documented by: LIT Labs: Laboratory Tests 04/04/21 04/04/21 04/04/21 Range/Units 16:32 16:32 17:10 WBC 6.8 (5.0-10.0) 10^3/uL RBC 5.22 (4.6-6.2) 10^6/uL Hgb 15.4 D (14.0-18.0) g/dL Hct 44.0 (40.0-54.0) % MCV 84.3 (80-100) fL MCH 29.5 (27.0-34.0) pg MCHC 35.0 (33.0-35.0) g/dL Plt Count 315 (150-450) 10^3/uL Neut % (Auto) 58.2 (42.2-75.2) % Lymph % (Auto) 32.8 (20.5-50.1) % Dane % (Auto) 6.5 (2-8) % Eos % (Auto) 2.2 (1.0-3.0) % Baso % (Auto) 0.3 (0.0-1.0) % Sodium 138 (136-145) mmol/L Potassium 4.1 (3.5-5.1) mmol/L Chloride 101 (98-107) mmol/L Carbon Dioxide 23 (21-32) mmol/L Anion Gap 18.1 H (7-13) mEq/L BUN 12 (7-18) mg/dL Creatinine 1.01 (0.70-1.30) mg/dL Est Cr Clr Drug Dosing 114.44 mL/min Estimated GFR (MDRD) > 60 BUN/Creatinine Ratio 11.9 (No establ ref range) Glucose 239 H (70-99) mg/dL Calcium 9.5 (8.5-10.1) mg/dL Total Bilirubin 0.8 (0.2-1.0) mg/dL AST 65 H (15-37) U/L ALT 148 H (16-63) U/L Alkaline Phosphatase 137 H (46-116) U/L Total Protein 8.3 H (6.4-8.2) g/dL Albumin 4.0 (3.4-5.0) g/dL Globulin 4.3 Albumin/Globulin Ratio 0.9 Urine Color Yellow (YELLOW) Urine Appearance Clear (CLEAR) Urine pH 5.5 (5.0-9.0) Ur Specific [place] >= 1.030 (1.005-1.030) Urine Protein 100 H (NEGATIVE) Urine Glucose (UA) 500 H (NEGATIVE) Urine Ketones Negative (NEGATIVE) Urine Occult Blood Negative (NEGATIVE) Urine Nitrite Negative (NEGATIVE) Urine Bilirubin Negative (NEGATIVE) Urine Urobilinogen 0.2 (0.2-1.0) mg/dL Ur Leukocyte Esterase Negative (NEGATIVE) Meds: Medications Generic Name Dose Route Start Last Admin Trade Name Fabricio PRN Reason Stop Dose Admin Sodium Chloride 10 ml 04/04/21 16:05 04/04/21 16:42 Sodium Chloride 0.9% 10 Ml Syringe FLUSH 10 ml ASDIRECTED PRN Administration Keep Vein Open Discontinued Medications Generic Name Dose Route Start Last Admin Trade Name Fabricio PRN Reason Stop Dose Admin Ketorolac Tromethamine 30 mg 04/04/21 16:05 04/04/21 16:42 Ketorolac 30 Mg/Ml Sdv IVPUSH 04/04/21 16:06 30 mg ONETIME ONE Administration - Radiology Interpretation Free Text/Narrative:: CT abdomen and pelvis: No hydronephrosis. No urolithiasis. Normal appendix. No acute findings. Stable prominent retroperitoneal lymph nodes show no progression or regression. The liver remains mildly enlarged, no focal liver lesion seen. See rad report. Departure - Departure Time of Disposition: 18:04 Disposition: Home, Self-Care 01 Condition: Good Clinical Impression: Retroperitoneal lymphadenopathy Abdominal pain Qualifiers: Abdominal location: right lower quadrant Qualified Code(s): R10.31 - Right lower quadrant pain Hyperglycemia due to type 2 diabetes mellitus Qualifiers: Diabetes mellitus group home insulin use: without group home use Qualified Code(s): E11.65 - Type 2 diabetes mellitus with hyperglycemia - Discharge Information *PRESCRIPTION DRUG MONITORING PROGRAM REVIEWED*: Not Applicable *COPY OF PRESCRIPTION DRUG MONITORING REPORT IN PATIENT MASHA: Not Applicable Instructions: Abdominal Pain, Adult, [id number], Hyperglycemia, [id number] Forms: ED Department Discharge Additional Instructions: Rx: Zofran 4mg Rx: Toradol 10mg Drink plenty of water. Low carbohydrate, low sugar diet. Follow up with [facility] for recheck and diabetic management within the next one week. Sepsis Event Note (ED) - Evaluation Sepsis Screening Result: No Definite Risk - Focused Exam Vital Signs: Vital Signs Temp Pulse Resp BP Pulse Ox 04/04/21 14:09 97.7 F 89 16 137/99 H 99 - My Orders Last 24 Hours: My Active Orders 04/04/21 16:05 Sodium Chloride 0.9% [Saline Flush] 10 ml FLUSH ASDIRECTED PRN Peripheral IV Insertion Adult [OM.PC] Stat 04/04/21 16:11 Peripheral IV Care [RC] . DIRECTED 04/04/21 17:10 UA W/MICROSCOPIC [URIN] Stat - Assessment/Plan Last 24 Hours: My Active Orders 04/04/21 16:05 Sodium Chloride 0.9% [Saline Flush] 10 ml FLUSH ASDIRECTED PRN Peripheral IV Insertion Adult [OM.PC] Stat 04/04/21 16:11 Peripheral IV Care [RC] . DIRECTED 04/04/21 17:10 UA W/MICROSCOPIC [URIN] Stat I have read and agree with the documentation that has been completed regarding this visit. By signing this record, I attest that the documentation was completed in my physical presence and is an accurate record of the encounter.
== END 2021-04-04 18:28 | disposition home or self-care (01) ==
LOC: DL.ED 13:48
DX: R59.0 Localized enlarged lymph nodes (principal); E11.65 Type 2 diabetes mellitus with hyperglycemia; E66.9 Obesity, unspecified; Z68.41 Body mass index [BMI] 40.0-44.9, adult; Z72.0 Tobacco use; Z88.5 Allergy status to narcotic agent
CPT/HCPCS: 36415; 74176; 80053; 81001; 85025; 96374; 99284; J1885

== ENCOUNTER 2022-09-02 16:38 | Emergency (ER) | payer BC, OTHER ==
[2022-09-02] MEDS ORDERED: Lidocaine 2% Viscous Solution 15 ML UD PO ONE (17:11)
[2022-09-02] MEDS ORDERED: Lidocaine 1% 5 ML VIAL INJECT ONE (17:12)
[2022-09-02] MEDS ORDERED: Take Home: Clindamycin HCl 150 MG, 12 Cap Pack PO ONE (17:12)
[2022-09-02] MEDS ORDERED: Bupivacaine 0.5% 30 ML SDV INFILT ONE (17:13)
== END 2022-09-02 17:49 | disposition home or self-care (01) ==
LOC: DL.ED 16:38
DX: K04.7 Periapical abscess without sinus (principal); K02.9 Dental caries, unspecified; I10 Essential (primary) hypertension; E11.9 Type 2 diabetes mellitus without complications; E66.9 Obesity, unspecified; F17.200 Nicotine dependence, unspecified, uncomplicated; Z88.5 Allergy status to narcotic agent
CPT/HCPCS: 64400; 99282; 99283; A9270-GY; J3490

== ENCOUNTER 2022-11-04 11:12 | Emergency (ER) | payer BC, MEDICAID, OTHER ==
[2022-11-04 11:33] VITALS: BP 140/109; PULSE 109
[2022-11-04] MEDS ORDERED: Bupivacaine 0.25% 10 ML SDV INJECT ONE (11:36)
== END 2022-11-04 12:16 | disposition designated cancer center or children's hospital (05) ==
LOC: DL.ED 11:12
DX: K08.89 Other specified disorders of teeth and supporting structures (principal); I10 Essential (primary) hypertension; E11.9 Type 2 diabetes mellitus without complications; E66.9 Obesity, unspecified; Z68.39 Body mass index [BMI] 39.0-39.9, adult; Z72.0 Tobacco use
CPT/HCPCS: 64400; 99282; J3490

== ENCOUNTER 2023-02-25 16:10 | Emergency (ER) | payer SELFPAY ==
[2023-02-25 16:43] VITALS: BP 167/108; PULSE 100
== END 2023-02-25 20:52 ==
LOC: DL.ED 16:10
DX: Z53.21 Procedure and treatment not carried out due to patient leaving prior to being seen by health care provider (principal)

== ENCOUNTER 2023-07-04 01:11 | Emergency (ER) | payer MEDICAID ==
[2023-07-04] MEDS: Naloxone 2 MG/2 ML Syringe ONE ×2 (01:27→01:30)
[2023-07-04] MEDS: Naloxone 2 MG/2 ML Syringe IVPUSH PRN (01:32)
[2023-07-04] MEDS: Sodium Chloride 0.9% 1,000 ML IV ONE (01:33)
[2023-07-04] MEDS: Ketorolac 30 MG/ML SDV IVPUSH ONE (01:34)
[2023-07-04 01:43] VITALS: BP 149/97; PULSE 117
[2023-07-04] MEDS: Ondansetron 4 MG/2 ML SDV IVPUSH ONE (01:43)
[2023-07-04] MEDS ORDERED: Naloxone 2 MG/2 ML Syringe ONE (01:49)
[2023-07-04] MEDS: Naloxone 2 MG in Sodium Chloride 0.9% 500 ML IV SCH (02:12)
== END 2023-07-04 04:32 | disposition home or self-care (01) ==
LOC: DL.ED 01:11
DX: T40.411A Poisoning by fentanyl or fentanyl analogs, accidental (unintentional), initial encounter (principal); I10 Essential (primary) hypertension; E11.9 Type 2 diabetes mellitus without complications; Z88.6 Allergy status to analgesic agent; E66.9 Obesity, unspecified; Z90.49 Acquired absence of other specified parts of digestive tract; Z68.41 Body mass index [BMI] 40.0-44.9, adult
CPT/HCPCS: 96361; 96365; 96366; 96375; 96376; 99284; J1885; J2310; J2405; J7030; J7040

== ENCOUNTER 2023-07-31 11:42 | Emergency (ER) | payer MEDICAID ==
[2023-07-31 12:29] VITALS: BP 136/92; PULSE 99
[2023-07-31] MEDS: Lidocaine 1% 5 ML VIAL INJECT ONE (13:16)
== END 2023-07-31 13:35 | disposition home or self-care (01) ==
LOC: DL.ED 11:42
DX: S61.213A Laceration without foreign body of left middle finger without damage to nail, initial encounter (principal); I10 Essential (primary) hypertension; K21.9 Gastro-esophageal reflux disease without esophagitis; E11.9 Type 2 diabetes mellitus without complications; Z88.5 Allergy status to narcotic agent; Z79.899 Other long term (current) drug therapy; W26.8XXA Contact with other sharp object(s), not elsewhere classified, initial encounter; Y93.89 Activity, other specified
CPT/HCPCS: 12001; 99283; J3490

== ENCOUNTER 2025-03-06 13:58 | Emergency (ER) | payer MEDICAID ==
[2025-03-06 14:32] LABS: BASOPHILS PERCENT AUTO 0.2 % (0.0-1.0); EOSINOPHILS PERCENT AUTO 1.0 % (1.0-3.0); LYMPHOCYTES PERCENT AUTO 38.4 % (20.5-50.1); MONOCYTES PERCENT AUTO 7.0 % (2-8); NEUTROPHILS PERCENT AUTO 53.4 % (42.2-75.2); PLATELET COUNT,PLT 313 10^3/uL (150-450); RED BLOOD CELL COUNT 5.67 10^6/uL (4.6-6.2); WHITE BLOOD CELL COUNT,WBC 8.0 10^3/uL (5.0-10.0)
[2025-03-06 14:40] VITALS: BP 161/100; PULSE 114
[2025-03-06 14:58] LABS: A/G RATIO 0.9; ALANINE AMINOTRANSFERASE,ALT 174 U/L (16-63); ASPARTATE AMNIOTRANSFERASE,AST 55 U/L (15-37); BILIRUBIN TOTAL 0.5 mg/dL (0.2-1.0); BLOOD UREA NITROGEN,BUN 7 mg/dL (7-18); CARBON DIOXIDE,CO2 30 mmol/L (21-32); CHLORIDE,CL 100 mmol/L (98-107); CREATININE 1.22 mg/dL (0.70-1.30); EST CRCL DRUG DOSING (CG) 88.54 mL/min; GLUCOSE RANDOM 284 mg/dL (70-99); POTASSIUM,K 3.6 mmol/L (3.5-5.1); PROTEIN TOTAL,TP 9.1 g/dL (6.4-8.2); SODIUM,NA 141 mmol/L (136-145)
[2025-03-06 15:01] LABS: ESTIMATED GFR 82 mL/min (>=60); ETHANOL BLOOD MEDICAL < 3 mg/dL (0)
[2025-03-06 15:22] LABS: AMPHETAMINES,URINE NEGATIVE (NEGATIVE); BARBITURATES,URINE NEGATIVE (NEGATIVE); MDMA (ECSTASY), URINE NEGATIVE (NEGATIVE); METHAMPHETAMINES,URINE NEGATIVE (NEGATIVE); OPIATES,URINE NEGATIVE (NEGATIVE); OXYCODONE,URINE NEGATIVE (NEGATIVE); PHENCYCLIDINE,URINE NEGATIVE (NEGATIVE); TCA,URINE NEGATIVE (NEGATIVE)
== END 2025-03-06 15:50 | disposition home or self-care (01) ==
LOC: DL.ED 13:58
DX: F29 Unspecified psychosis not due to a substance or known physiological condition (principal); I10 Essential (primary) hypertension; E11.9 Type 2 diabetes mellitus without complications; F17.200 Nicotine dependence, unspecified, uncomplicated; Z88.5 Allergy status to narcotic agent; Z79.899 Other long term (current) drug therapy; Z90.49 Acquired absence of other specified parts of digestive tract
CPT/HCPCS: 36415; 80053; 80143; 80179; 80305-QW; 80307; 85025; 99284